=== PATIENT | male | born 1955 | race Hispanic/Latino ===

== ENCOUNTER 2024-06-03 06:55 | Day surgery (SDC) | payer OTHER, MEDICARE ==
[2024-06-03] VITALS (11 sets, daily range): BP systolic 92–131; BP diastolic 52–70; PULSE 57–60; RESP 11–16; TEMP 96.5–98.3
[~2024-06-03] VITALS: Ht 177.8 cm; Wt 91.6 kg
[~2024-06-03 06:55] MED LIST: APIX5TAB PO; ASCO100033 PO; CHOL100046 PO; DAPA10TA PO; FISH1CAP20 PO; FOLATE PO; FURO40TA5 PO; ROSU10TA72 PO; SACU1TAB7 PO; SITA50TA PO; VITAMIN 12 PO
[2024-06-03] MEDS: 0.9%NACL 1000ML 1,000 ML IV ONE (07:45)
[2024-06-03] MEDS ORDERED: proPOFol 10 MG/ML 20ML VIAL IV ONE (09:50)
[2024-06-03] MEDS ORDERED: LIDOCAINE PF 100MG/5ML (2%) SYRINGE 5ML ONE (09:50)
== END 2024-06-03 11:15 | disposition home or self-care (01) ==
LOC: DAH 06:55 → ENDO 06:55
PROVIDERS: ATTEND Internal Medicine Gastroenterology
DX: K74.60 Unspecified cirrhosis of liver (principal); K21.00 Gastro-esophageal reflux disease with esophagitis, without bleeding; K29.80 Duodenitis without bleeding; K29.50 Unspecified chronic gastritis without bleeding; K31.89 Other diseases of stomach and duodenum; K26.9 Duodenal ulcer, unspecified as acute or chronic, without hemorrhage or perforation; K44.9 Diaphragmatic hernia without obstruction or gangrene; K57.30 Diverticulosis of large intestine without perforation or abscess without bleeding; N20.0 Calculus of kidney; I50.40 Unspecified combined systolic (congestive) and diastolic (congestive) heart failure; K80.20 Calculus of gallbladder without cholecystitis without obstruction; E11.9 Type 2 diabetes mellitus without complications; Z85.038 Personal history of other malignant neoplasm of large intestine; Z98.42 Cataract extraction status, left eye; Z95.0 Presence of cardiac pacemaker; Z90.49 Acquired absence of other specified parts of digestive tract; Z79.01 Long term (current) use of anticoagulants; Z79.899 Other long term (current) drug therapy
CPT/HCPCS: 82948 ×2; 43239; J7030 ×2; J2001; J2704; A4620; A7002; J3490

== ENCOUNTER 2025-09-05 06:54 | Day surgery (SDC) | payer OTHER, MEDICARE ==
[2025-09-05] VITALS (11 sets, daily range): BP systolic 84–117; BP diastolic 49–71; PULSE 55–63; RESP 14–20; TEMP 97.1–98.1
[~2025-09-05] VITALS: Ht 177.8 cm; Wt 92.1 kg
[2025-09-05] MEDS: 0.9%NACL 1000ML 1,000 ML IV ONE (08:25)
--- NOTE | 2025-09-05 10:55 | NUR ---
BOTH PT AND SPOUSE GIVEN VERBAL AND WRITTEN DISCHARGE INSTRUCTIONS IV REMOVED SITE ASYMPTOMATIC PT TAKEN OUT VIA WHEELCHAIR SPOUSE DRIVING
== END 2025-09-05 11:00 | disposition home or self-care (01) ==
LOC: ENDO 06:54 → DAH 06:54 → ENDO 11:00
PROVIDERS: ATTEND Internal Medicine Gastroenterology
DX: K57.30 Diverticulosis of large intestine without perforation or abscess without bleeding (principal); D12.4 Benign neoplasm of descending colon; D12.3 Benign neoplasm of transverse colon; K29.50 Unspecified chronic gastritis without bleeding; K44.9 Diaphragmatic hernia without obstruction or gangrene; K21.00 Gastro-esophageal reflux disease with esophagitis, without bleeding; E11.9 Type 2 diabetes mellitus without complications; I50.40 Unspecified combined systolic (congestive) and diastolic (congestive) heart failure; K74.60 Unspecified cirrhosis of liver; N20.0 Calculus of kidney; Z98.0 Intestinal bypass and anastomosis status; Z86.0100 Personal history of colon polyps, unspecified; Z85.038 Personal history of other malignant neoplasm of large intestine; Z83.3 Family history of diabetes mellitus; Z79.899 Other long term (current) drug therapy; Z98.890 Other specified postprocedural states
CPT/HCPCS: 82948 ×2; 43239; 45380; 45385; J7030; J2704 ×2; A4620; A4215; J3490